=== PATIENT | female | born 1970 | race African-American/Black ===

== ENCOUNTER 2017-01-11 11:04 | Inpatient (IN) | payer OTHER ==
[2017-01-11 11:51] VITALS: BMI 20.3
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
[2017-01-11] MEDS ORDERED: MAGNESIUM HYDROX 2400MG/30ML ORAL SUSPENSION 30 ML CUP PO PRN (15:35)
[2017-01-11] MEDS ORDERED: NICOTINE POLACRILEX 2 MG GUM BC PRN (15:35)
[2017-01-11] MEDS ORDERED: P-EPHED 60MG/TRIPROLIDI 2.5MG TABLET PO PRN (15:35)
[2017-01-11] MEDS ORDERED: LOPERAMIDE HCL 2 MG CAPSULE PO PRN (15:35)
[2017-01-11] MEDS ORDERED: MENTHOL/PHENOL 1 EACH UD MM PRN (15:35)
[2017-01-11] MEDS ORDERED: MAG HYDROX/AL HYDROX/SIMETH 30 ML UNIT-DOSE CUP PO PRN (15:35)
[2017-01-11] MEDS ORDERED: MAGNESIUM CITRATE 300 ML BOTTLE PO PRN (15:35)
[2017-01-11] MEDS ORDERED: diphenhydrAMINE HCL 50 MG CAPSULE PO PRN (15:35)
[2017-01-11] MEDS ORDERED: hydrOXYzine PAMOATE 25 MG CAPSULE (FP) PO PRN (15:35)
[2017-01-11] MEDS ORDERED: guaiFENesin/D-METHORPHAN HB 10 ML UNIT-DOSE CUPS PO PRN (15:35)
[2017-01-11] MEDS ORDERED: TUBERCULIN PPD 5 TU/0.1ML VIAL ID ONE (18:06)
[2017-01-11] MEDS: NICOTINE 14 MG/24 HOURS TOPICAL PATCH TD SCH (18:11)
[2017-01-11] MEDS: THIAMINE HCL 100 MG TABLET (FP) PO SCH (21:28)
--- NOTE | 2017-01-12 07:25 | HP ---
Psychiatrist Admission - Data Date of interview: 01/12/17 Admission source: chief marketing officer Identifying data: This is the first [facility] admission for this 46 years old single Black female, mother of 3 children, homeless Medical History: Significant for history of surgery for abdominal hernia repair in 2000, 2001 and 2012. Smokes 5 cigarettes daily Psychiatric History: Denies history of previous psychiatric treatment Physical/Sexual Abuse/Trauma History: Denies history of emotional, physical or sexual as DV relationship Additional Comment: Reports history of multiple arrests including 3 felony convictions. Denies being on parole/probation at present Vital Signs: Vital Signs - 24 hr 01/11/17 01/12/17 01/12/17 11:47 00:30 03:30 Temperature 98.8 F Pulse Rate 68 Respiratory 18 16 16 Rate Blood Pressure 119/69 01/12/17 07:01 Temperature 98.1 F Pulse Rate 78 Respiratory 18 Rate Blood Pressure 107/69 Allergies/Adverse Reactions: Allergies Allergy/AdvReac Type Severity Reaction Status Date / Time carrot Allergy Severe Hives Verified 01/11/17 14:32 penicillin G Allergy Severe Swelling Verified 01/11/17 14:32 Date of last physical exam: 01/11/17 Concur with the findings of this exam: Yes - Substance Abuse/Tx History Hx Alcohol Use: No Hx Substance Use: Yes Substance Use Type: Cocaine (Started smoking crack cocaine at age 19, consumes $ 20 worth daily. Last smoked on 01/10/17) Hx Substance Use Treatment: Yes ([facility]isa Morales in the [place] but did not complete) - Admission Criteria Previous failed treatment: Yes Poor recovery environment: Yes Comorbidities: Yes Lacks judgement: Yes Mental Status Exam - Mental Status Exam Alert and Oriented to: Time, Place, Person Cognitive Function: Fair Patient Appearance: Well Groomed Mood: Irritable Affect: Appropriate Patient Behavior: Uncooperative Speech Pattern: Clear Voice Loudness: Normal Thought Process: Intact Thought Disorder: Not Present Hallucinations: Denies Suicidal Ideation: Denies Homicidal Ideation: Denies Insight/Judgement: Fair Sleep: Well Appetite: Good Muscle strength/Tone: Normal Gait/Station: Normal Psychiatric Findings - Problem List ([place] 1, 2,3) (1) Cocaine dependence, uncomplicated Current Visit: Yes Status: Chronic (2) Nicotine dependence Current Visit: Yes Status: Acute (3) Substance induced mood disorder Current Visit: Yes Status: Acute - Initial Treatment Plan Initial Treatment Plan: Monitor progress
[2017-01-12] MEDS: NICOTINE 14 MG/24 HOURS TOPICAL PATCH TD SCH (10:02)
[2017-01-12] MEDS: PRENATAL VITAMINS W/ FOLIC ACID TABLET (FP) PO SCH (10:02)
[2017-01-12] MEDS: ACETAMINOPHEN 325 MG TABLET (FP) PO PRN (10:37)
--- NOTE | 2017-01-12 11:12 | EKG ---
Test Reason : Blood Pressure : / mmHG Vent. Rate : 060 BPM Atrial Rate : 060 BPM P-R Int : 138 ms QRS Dur : 084 ms QT Int : 404 ms P-R-T Axes : 070 031 012 degrees QTc Int : 404 ms NORMAL SINUS RHYTHM NORMAL ECG NO PREVIOUS ECGS AVAILABLE Confirmed by ILYA ZULUAGA, FERMÍN ([id number]) on 01/12/2017 11:12:10 AM Referred By: Confirmed By:FERMÍN CARABALLO MD
[2017-01-12 15:24] LABS: MCH 31.2 pg (25.7-33.7); MCHC 32.6 g/dl (32.0-36.0); MEAN CELL VOLUME 95.7 fl (80-96); MEAN PLT VOLUME 10.6 fl (7.5-11.1); PLATELET COUNT 212 K/MM3 (134-434); RDW 14.2 % (11.6-15.6); WHITE BLOOD COUNT 6.4 K/mm3 (4.0-10.0)
[2017-01-12 15:29] LABS: ANION GAP 6 (8-16); CO2 27 mmol/L (21-32)
[2017-01-12 15:33] LABS: ALK PHOS 61 U/L (45-117); BILIRUBIN,TOTAL 0.5 mg/dL (0.2-1.0); CALCIUM 8.4 mg/dL (8.5-10.1); CREATININE 0.8 mg/dL (0.55-1.02); GLUCOSE,RANDOM 122 mg/dL (74-106); SGOT/AST 13 U/L (15-37); SGPT/ALT 26 U/L (12-78); TOT PROT 5.6 g/dl (6.4-8.2)
[2017-01-12 17:07] LABS: SICKLE CELL SCREEN NEGATIVE (NEGATIVE)
[2017-01-12] MEDS: THIAMINE HCL 100 MG TABLET (FP) PO SCH (21:17)
[2017-01-13] MEDS: NICOTINE 14 MG/24 HOURS TOPICAL PATCH TD SCH (09:53)
[2017-01-13] MEDS: PRENATAL VITAMINS W/ FOLIC ACID TABLET (FP) PO SCH (09:53)
[2017-01-13] MEDS: THIAMINE HCL 100 MG TABLET (FP) PO SCH (21:09)
[2017-01-14] MEDS: PRENATAL VITAMINS W/ FOLIC ACID TABLET (FP) PO SCH (10:06)
[2017-01-14] MEDS: NICOTINE 14 MG/24 HOURS TOPICAL PATCH TD SCH (10:06)
[2017-01-14 14:11] LABS: URINE APPEARANCE CLOUDY; URINE BILIRUBIN NEGATIVE (NEGATIVE); URINE BLOOD NEGATIVE (NEGATIVE); URINE COLOR LTYELLOW; URINE GLUCOSE (UA) NEGATIVE (NEGATIVE); URINE KETONE NEGATIVE (NEGATIVE); URINE LEUK ESTERASE NEGATIVE (NEGATIVE); URINE NITRITE NEGATIVE (NEGATIVE); URINE PROTEIN NEGATIVE (NEGATIVE); URINE UROBILINOGEN NEGATIVE mg/dL (0.2-1.0)
[2017-01-14] MEDS: IBUPROFEN 400 MG TABLET (FP) PO PRN (19:02)
[2017-01-14] MEDS: THIAMINE HCL 100 MG TABLET (FP) PO SCH (22:00)
[2017-01-15] MEDS: NICOTINE 14 MG/24 HOURS TOPICAL PATCH TD SCH (10:08)
[2017-01-15] MEDS: PRENATAL VITAMINS W/ FOLIC ACID TABLET (FP) PO SCH (10:09)
[2017-01-15] MEDS: THIAMINE HCL 100 MG TABLET (FP) PO SCH (21:28)
[2017-01-16] MEDS: PRENATAL VITAMINS W/ FOLIC ACID TABLET (FP) PO SCH (10:05)
[2017-01-16] MEDS: NICOTINE 14 MG/24 HOURS TOPICAL PATCH TD SCH (10:05)
[2017-01-16] MEDS: IBUPROFEN 400 MG TABLET (FP) PO PRN (13:33)
[2017-01-16] MEDS: ACETAMINOPHEN 325 MG TABLET (FP) PO PRN (16:02)
[2017-01-16] MEDS: THIAMINE HCL 100 MG TABLET (FP) PO SCH (22:45)
[2017-01-17] MEDS: IBUPROFEN 400 MG TABLET (FP) PO PRN (08:47)
[2017-01-17] MEDS: PRENATAL VITAMINS W/ FOLIC ACID TABLET (FP) PO SCH (10:13)
[2017-01-17] MEDS: NICOTINE 14 MG/24 HOURS TOPICAL PATCH TD SCH (10:13)
[2017-01-17] MEDS: ACETAMINOPHEN 325 MG TABLET (FP) PO PRN (11:44)
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
--- NOTE | 2017-01-17 17:29 | PN ---
[facility] Progress Note Note: 46 Y/O AA/FEMALE RETURNED TO [facility] FROM [facility]. ALERT O X 3. NAD. D/C PAPER INDICATES: CT SCAN OF HEAD IS NEGATIVE, RECOMMEND FOLLOW-UP WITH HER NEUROLOGY IF HEADACHES PERSIST CONTINUE TYLENOL OR MOTRIN NEEDED FOR HEADACHE. PT MAY CONTINUE REHAB.
[2017-01-17] MEDS: THIAMINE HCL 100 MG TABLET (FP) PO SCH (21:30)
[2017-01-17] MEDS ORDERED: MICONAZOLE NITRATE 2% VAGINAL CREAM 45 GM TUBE VG SCH (22:00)
[2017-01-18] MEDS: PRENATAL VITAMINS W/ FOLIC ACID TABLET (FP) PO SCH (10:04)
[2017-01-18] MEDS: NICOTINE 14 MG/24 HOURS TOPICAL PATCH TD SCH (10:04)
[2017-01-18 11:15] VITALS: BP 116/82; PULSE 72; TEMP 98.6
--- NOTE | 2017-01-18 12:04 | PN ---
S Progress Note Note: was called by the staff due to the patient decision to leave AMA, patient did not want to wait and left unit AMA prior to be seen by a psychiatrist.
== END 2017-01-18 11:00 | disposition left against medical advice (07) | DRG 770 ==
LOC: YASAS 11:04 → Y3E 16:04
PROVIDERS: ADMIT Psychiatry & Neurology Psychiatry; ATTEND Psychiatry & Neurology Psychiatry
PROC: HZ42ZZZ Group Counseling for Substance Abuse Treatment, Cognitive-Behavioral (ICD-10-PCS; principal; 2017-01-18)
DX: F14.20 Cocaine dependence, uncomplicated (principal); F17.210 Nicotine dependence, cigarettes, uncomplicated; F19.24 Other psychoactive substance dependence with psychoactive substance-induced mood disorder; Z59.0 Homelessness
CPT/HCPCS: 36415; 80053; 81003; 85027; 85660; 86593; 93005; 93010

== ENCOUNTER 2017-01-17 13:29 | Emergency (ER) | payer OTHER ==
[2017-01-17 13:36] VITALS: BP 135/65; PULSE 73; TEMP 98; BMI 20.3
--- NOTE | 2017-01-17 14:48 | PDOC ---
History of Present Illness - General Chief Complaint: Headache Stated Complaint: HEADACHE Time Seen by Provider: 01/17/17 14:21 History Source: Patient, Other ([facility]. ) Exam Limitations: No Limitations - History of Present Illness Initial Comments: 01/17/17 14:36 CHIEF COMPLAINT: Headache for one year HISTORY OF PRESENT ILLNESS: Patient is a 46-year-old female,sent from inpatient rehabilitation [facility] 3 E. sent for head CT by Dr. Nikhil Dodd. Patient states headaches for 3 days has been given Tylenol and Motrin without resolved. Patient reports one year prior was in [facility] fell back and hit her head. Since with intermittent headaches. She denies LOC, no nausea vomiting, no unsteady gait. No neurosensory deficits. Review of Systems GENERAL/CONSTITUTIONAL: No fever or chills. No weakness. No weight change. HEAD, EYES, EARS, NOSE AND THROAT: No change in vision. No ear pain or discharge. No sore throat. CARDIOVASCULAR: No chest pain or shortness of breath. RESPIRATORY: No cough, wheezing, or hemoptysis. GASTROINTESTINAL: No nausea, vomiting, diarrhea or constipation. No rectal bleeding. GENITOURINARY: No dysuria, frequency, or change in urination. MUSCULOSKELETAL: No joint or muscle swelling or pain. No neck or back pain. SKIN : No rash or easy bruising. NEUROLOGIC: No headache, vertigo, loss of consciousness, or loss of sensation. PSYCHIATRIC: No depression or anxiety. ENDOCRINE: No increased thirst. No abnormal weight change. HEMATOLOGIC/LYMPHATIC: No anemia, easy bleeding, or history of blood clots. ALLERGIC/IMMUNOLOGIC: No hives or skin allergy. No latex allergy. Physical Exam: GENERAL: The patient is awake, alert, and fully oriented, in no acute distress. HEAD: Normal with no signs of trauma. EYES: Pupils equal, round and reactive to light, extraocular movements intact, sclera anicteric, conjunctiva clear. ENT: Ears normal, nares patent, oropharynx clear without exudates. Moist mucous membranes. No uvula deviation NECK: Normal range of motion, supple without lymphadenopathy, JVD, or masses. LUNGS: Breath sounds equal, clear to auscultation bilaterally. No wheezes, and no crackles. HEART: Regular rate and rhythm, normal S1 and S2 without murmur, rub or gallop. ABDOMEN: Soft, nontender, normoactive bowel sounds. No guarding, no rebound. No masses. No bruising or abrasions MUSCULOSKELETAL: Normal range of motion, no edema. No clubbing or cyanosis. No cords, erythema, or tenderness. NEUROLOGICAL: Cranial nerves II through XII grossly intact. Normal speech, normal gait. SKIN: Warm, Dry, normal turgor, no rashes or lesions noted. Past History - Past Medical History Allergies/Adverse Reactions: Allergies Allergy/AdvReac Type Severity Reaction Status Date / Time carrot Allergy Severe Hives Verified 01/17/17 13:31 penicillin G Allergy Severe Swelling Verified 01/17/17 13:31 Home Medications: Ambulatory Orders NK [No Known Home Medication] 01/11/17 Anemia: No Asthma: No Cardiac Disorders: No CVA: No COPD: No Diabetes: No GI Disorders: No Disorders: No HTN: No Hypercholesterolemia: No Kidney Stones: No Suicide Attempt (Hx): No (DENIES) Seizures: No Thyroid Disease: No - Surgical History Abdominal Surgery: Yes (abdominal hernia repair in 2000, 2001 and 2012) Appendectomy: No Cardiac Surgery: No Cholecystectomy: No Lung Surgery: No Neurologic Surgery: No Orthopedic Surgery: No - Psycho/Social/Smoking Cessation Hx Anxiety: No Suicidal Ideation: No Smoking History: Current every day smoker Have you smoked in the past 12 months: Yes Number of Cigarettes Smoked Daily: 5 Information on smoking cessation initiated: No 'Breaking Loose' booklet given: 01/11/17 Hx Alcohol Use: No Drug/Substance Use Hx: Yes Substance Use Type: Cocaine Hx Substance Use Treatment: Yes (Lisa Morales in the [place] but did not complete) *Physical Exam - Vital Signs Last Vital Signs Temp Pulse Resp BP Pulse Ox 98 F 73 20 135/65 98 01/17/17 13:32 01/17/17 13:32 01/17/17 13:32 01/17/17 13:32 01/17/17 13:32 Medical Decision Making - Medical Decision Making 01/17/17 15:18 A/P: Patient sent for evaluation of intermittent headaches for one year, has been having a persistent headache for 3 days given Tylenol Motrin without resolve. Patient sent to head CT as per request of Dr. Nikhil Dodd. 01/17/17 16:07 CT is negative, patient with no complaint of headache discharged back to [facility] . Patient given food prior to discharge. *DC/Admit/Observation/Transfer Diagnosis at time of Disposition: Headache Qualifiers: Headache type: tension-type Headache chronicity pattern: chronic headache Intractability: not intractable Qualified Code(s): G44.229 - Chronic tension- type headache, not intractable - Discharge Dispostion Admit: No - Referrals Referrals: Candy Sanchez [Other] - Patient Instructions Printed Discharge Instructions: DI for Headache Additional Instructions: Continue Tylenol or Motrin as needed for headache CT scan of the head is negative, recommend follow-up with her neurology if headaches persist
== END 2017-01-17 15:46 | disposition home or self-care (01) ==
LOC: JERFT 13:29
DX: G44.209 Tension-type headache, unspecified, not intractable (principal); F17.210 Nicotine dependence, cigarettes, uncomplicated; Z59.0 Homelessness
CPT/HCPCS: 70450-TC; 99281-25